=== PATIENT | male | born 1975 | race African-American/Black ===

== ENCOUNTER 2018-09-04 08:54 | Emergency (ER) | payer MEDICAID ==
[~2018-09-04] VITALS: Ht 190.5 cm; Wt 86.0 kg
[~2018-09-04 08:54] MED LIST: AMLO5TAB4 PO; ASPI-1393 PO; FLUOXETINE; OLAN10TA19 PO
[2018-09-04] MEDS ORDERED: KETOROLAC 30MG/ML VIAL IV STA (09:51)
[2018-09-04] MEDS ORDERED: SODIUM CHLORIDE 0.9% 1,000 ML IV ONE (09:51)
[2018-09-04 10:30] LABS: HEMATOCRIT. 46.7 % (42.0-52.0); HEMOGLOBIN. 15.7 g/dL (14.0-18.0); MEAN CORPUSCULAR HEMOGLOBIN 29.3 pg (28.0-32.0); MEAN CORPUSCULAR VOLUME 87.1 fL (80.0-94.0); PLATELET 259 x1000/uL (130-400); RED BLOOD CELL COUNT 5.37 mill/uL (4.7-6.1); RED CELL DISTRIBUTION WIDTH 13.7 % (11.6-14.6)
[2018-09-04 10:35] LABS: CHLORIDE 107 mEq/L (98-107)
[2018-09-04 10:39] LABS: ETHANOL BLOOD < 10 mg/dL
[2018-09-04 10:57] LABS: PLATELET ESTIMATE NORMAL
[2018-09-04 11:06] LABS: *AMPHETAMINES SCREEN URINE NEGATIVE (NEGATIVE); *BARBITURATES SCREEN URINE NEGATIVE (NEGATIVE); *BENZODIAZEPINES SCREEN URINE NEGATIVE (NEGATIVE)
[2018-09-04 11:07] LABS: *COCAINE SCREEN URINE PRESUMTIVE POSITIVE (NEGATIVE); CANNABINOID URINE SCREEN PRESUMTIVE POSITIVE (NEGATIVE); METHADONE URINE SCREEN NEGATIVE (NEGATIVE); OPIATES URINE SCREEN NEGATIVE (NEGATIVE); PHENCYCLIDINE URINE SCREEN NEGATIVE (NEGATIVE)
[2018-09-04] MEDS ORDERED: HYDROCODONE/ACETAMINOPHEN 5/325MG TABLET PO ONE (12:15)
[2018-09-04 12:22] VITALS: BP 128/69
== END 2018-09-04 12:29 | disposition home or self-care (01) ==
LOC: ER 08:54
DX: R07.89 Other chest pain (principal)
CPT/HCPCS: 36415; 71045; 80053; 80305; 80320; 84484; 85025; 93005; 96374; 99284; J1885; J7030; G0480

== ENCOUNTER 2021-02-04 16:20 | Emergency (ER) | payer MEDICAID ==
[~2021-02-04] VITALS: Ht 190.5 cm; Wt 79.5 kg
[~2021-02-04 16:20] MED LIST changes: -ASPI-1393 PO; +ASPI-1497 PO; -OLAN10TA19 PO; +OLAN10TA72 PO
[2021-02-04] MEDS ORDERED: MORPHINE SULFATE 4 MG/ML CPJ (NOT FOR IM USE) IV STA (17:10)
[2021-02-04 17:28] LABS: BASOPHILS % 0.5 % (0.0-2.0); EOSINOPHILS % 0.5 % (0.0-5.0); HEMATOCRIT. 38.8 % (42.0-52.0); HEMOGLOBIN. 13.1 g/dL (14.0-18.0); LYMPHOCYTES % 29.1 % (20.0-50.0); MEAN CORPUSCULAR HEMOGLOBIN 28.4 pg (28.0-32.0); MEAN CORPUSCULAR VOLUME 84.1 fL (80.0-94.0); MEAN PLATELET VOLUME 8.5 fl (7.4-10.4); MONOCYTES % 7.2 % (2.0-8.0); NEUTROPHILS % 62.7 % (40.0-76.0); PLATELET 194 x1000/uL (130-400); RED BLOOD CELL COUNT 4.61 mill/uL (4.7-6.1); RED CELL DISTRIBUTION WIDTH 13.2 % (11.6-14.6)
[2021-02-04] MEDS ORDERED: CEFAZOLIN 1000MG PREMIX 50 ML IV ONE (17:30)
[2021-02-04 17:34] LABS: CHLORIDE 110 mEq/L (98-107)
[2021-02-04 17:38] LABS: PROTHROMBIN TIME 11.2 sec (9.6-11.0)
[2021-02-04 17:39] LABS: ETHANOL BLOOD < 10 mg/dL
[2021-02-04] MEDS ORDERED: SODIUM CHLORIDE 0.9% 1,000 ML IV ONE (19:30)
[2021-02-04] MEDS ORDERED: MORPHINE SULFATE 4 MG/ML CPJ (NOT FOR IM USE) IV ONE (19:30)
[2021-02-05] MEDS ORDERED: MORPHINE SULFATE 4 MG/ML CPJ (NOT FOR IM USE) IV ONE (04:45)
[2021-02-05 04:58] VITALS: BP 142/79
== END 2021-02-05 05:08 | disposition short-term general hospital (02) ==
LOC: ER 16:20 → EDBD 16:20 → ER 02-05 05:08
DX: S81.032A Puncture wound without foreign body, left knee, initial encounter (principal); W34.09XA Accidental discharge from other specified firearms, initial encounter; Y93.89 Activity, other specified; Y92.89 Other specified places as the place of occurrence of the external cause; Y99.8 Other external cause status; F31.9 Bipolar disorder, unspecified; I10 Essential (primary) hypertension; F20.9 Schizophrenia, unspecified; Z20.822 Contact with and (suspected) exposure to COVID-19
CPT/HCPCS: 36415; 73560; 73700; 80053; 80320; 83605; 85025; 85610; 87426; 96361; 96365; 96375; 96376; 99285; J0690; J2270; J7030; G0480